=== PATIENT | male | born 1970 | race Caucasian/White ===

== ENCOUNTER 2017-10-28 12:12 | Inpatient (IN) | payer OTHER ==
[2017-10-28] VITALS (15 sets, daily range): BP systolic 98–142; BP diastolic 56–85; PULSE 96–110; RESP 11–12; TEMP 97.3–100; O2SAT 97–100
--- NOTE | 2017-10-28 14:47 | RADRPT ---
EXAM DATE/TIME: 10/28/2017 14:22 [facility] COMPARISON: No previous studies available for comparison. INDICATIONS : Organ donor. MEDICAL HISTORY : unobtainable SURGICAL HISTORY : unobtainable ENCOUNTER: Subsequent ACUITY: 1 day PAIN SCORE: Non-responsive. LOCATION: Bilateral chest FINDINGS: There is diffuse patchy infiltrates and consolidation in the medial right lower lung. The left lung i s grossly clear except for some mild atelectasis in the left lung base. The heart size is within norm al limits. There is no pneumothorax. Support devices are in place. The bony structures are grossly in tact. CONCLUSION: Patchy parenchymal consolidation in the right lower lung. Vadim Simms MD on October 28, 2017 at 14:44 Board Certified Radiologist. This report was verified electronically.
[2017-10-28] MEDS ORDERED: INSULIN HUMAN REGULAR 1,000 UNITS/10 ML VIAL IV PUSH SCH (16:00)
[2017-10-28] MEDS: CLINDAMYCIN 900 MG/NS PREMIX 50 ML IV SCH ×2 (16:00→21:57)
[2017-10-28] MEDS ORDERED: methylPREDNISolone SO SUCC INJ 2,000 MG in DEXTROSE 5% IN WATER INJ 250 ML IV ONE ×2 (16:00)
[2017-10-28] MEDS: 0.0225% SODIUM CHLORIDE, POTASSIUM CHLORIDE 20 MEQ IV SCH ×3 (16:00)
[2017-10-28] MEDS ORDERED: CLINDAMYCIN 900 MG in NS 100 ML IV SCH (16:00)
[2017-10-28] MEDS ORDERED: LEVOTHYROXINE SODIUM 100 MCG VIAL IV PUSH ONE (16:00)
[2017-10-28] MEDS ORDERED: DEXTROSE 50% IN WATER 50 ML VIAL(D50) IV PUSH SCH (16:00)
[2017-10-28] MEDS: CEFEPIME 1000 MG/NS 100 ML IV SCH ×4 (16:00→21:23)
[2017-10-28] MEDS ORDERED: VASOPRESSIN 80 U/NS 100 ML Titrate per Translife Protocol IV PRN ×2 (16:00)
[2017-10-28] MEDS ORDERED: DOPamine INJ 400 MG in SODIUM CHLOR 0.9% 250 ML INJ 240 ML IV PRN (16:15)
[2017-10-28] MEDS ORDERED: DOPamine INJ 400 MG in SODIUM CHLOR 0.9% 250 ML INJ 250 ML IV SCH (16:15)
[2017-10-28] MEDS ORDERED: LEVOTHYROXINE 400 MCG/NS 500 ML IV SCH ×4 (16:15→17:00)
[2017-10-28] MEDS: RESP: ACETYLCYSTEINE 20% 30 ML NEB NEB SCH ×3 (16:16→23:09)
[2017-10-28] MEDS: RESP: ALBUTEROL 2.5 MG/3 ML NEB (SCH) NEB ×3 (16:16→23:09)
[2017-10-28 17:04] LABS: BACTERIA, URINE OCC /hpf; BILIRUBIN, URINE NEG (NEG); BLOOD, URINE MOD (NEG); GLUCOSE,URINE NEG (NEG); HYALINE CAST, URINE 3 /lpf (RARE); KETONE, URINE NEG (NEG); NITRITE,URINE NEG (NEG); URINE COLOR YELLOW (YELLW/STRAW); URINE LEUKOCYTE ESTERASE LARGE (NEG); WHITE BLOOD CELL CLUMPS MANY
[2017-10-28 17:05] LABS: BASOPHIL % 0.2 % (0.0-2.0); EOSINOPHIL # 0.1 TH/MM3 (0-0.4); EOSINOPHIL % 1.7 % (0.0-4.0); HEMATOCRIT 33.9 % (39.0-51.0); LYMPHOCYTE # 0.5 TH/MM3 (1.0-4.8); MEAN CELL VOLUME 92.1 FL (80.0-100.0); MEAN CORPUSCULAR HEMOGLOBIN 29.9 PG (27.0-34.0); MEAN CORPUSCULAR HGB CONC 32.5 % (32.0-36.0); MEAN PLATELET VOLUME 9.6 FL (7.0-11.0); MONO % 11.4 % (0.0-8.0); MONOCYTE # 0.9 TH/MM3 (0-0.9); NEUT % 79.7 % (16.0-70.0); PLATELET COUNT 124 TH/MM3 (150-450); RED BLOOD COUNT 3.68 MIL/MM3 (4.50-5.90); RED CELL DISTRIBUTION WIDTH 14.7 % (11.6-17.2); WHITE BLOOD COUNT 7.6 TH/MM3 (4.0-11.0)
[2017-10-28 17:13] LABS: ALBUMIN 2.3 GM/DL (3.4-5.0); AST (GOT) 16 U/L (15-37); BLOOD UREA NITROGEN 16 MG/DL (7-18); CHLORIDE 111 MEQ/L (98-107); CREATININE 1.82 MG/DL (0.60-1.30); DIRECT BILIRUBIN ADULT 0.2 MG/DL (0.0-0.2); GAMMA GT 29 U/L (15-85); GLOMERULAR FILTRATION RATE 40 ML/MIN (>89); GLUCOSE,RANDOM 86 MG/DL (74-106); MAGNESIUM 1.3 MG/DL (1.5-2.5); PHOSPHORUS 3.6 MG/DL (2.5-4.9); SODIUM (NA) 140 MEQ/L (136-145)
[2017-10-28] MEDS ORDERED: SODIUM BICARBONATE 8.4% SOLN 50 MEQ/50 ML VIAL ONE (17:15)
[2017-10-28 17:18] LABS: ALKALINE PHOSPHATASE 49 U/L (45-117); ALT (GPT) 12 U/L (12-78); INDIRECT BILIRUBIN 0.6 MG/DL (0.0-0.8); TOTAL BILIRUBIN ADULT 0.8 MG/DL (0.2-1.0); TOTAL PROTEIN 5.6 GM/DL (6.4-8.2); TROPONIN I 0.25 NG/ML (0.02-0.05)
[2017-10-28 17:20] LABS: CALCIUM-PROTEIN CORRECTED 7.8 MG/DL (8.5-10.1)
[2017-10-28] MEDS: MILRINONE INJ 20 MG in SODIUM CHLORIDE 0.9% INJ 80 ML IV SCH (17:30)
--- NOTE | 2017-10-28 18:31 | ECHRPT ---
Indication: organ donor CONCLUSIONS The left ventricular systolic function is severely reduced with an estimated ejection fraction in th e range of 30-35%. Normal left ventricular size. Wall thickness is normal. There is global left ventricular dysfunction. The right ventricle is mildly dilated. Trace mitral valve regurgitation. Aortic valve sclerosis is present. Trace aortic valve regurgitation. Mild thickening of the tricuspid valve leaflets. There is mild tricuspid valve regurgitation. The estimated pulmonary arterial pressure is 38.9 mmHg. BP: / HR: Rhythm: Sinus MEASUREMENTS (Male / Female) Normal Values Technical Quality:Good 2D ECHO LV Diastolic Diameter PLAX 5.7 cm 4.2 - 5.9 / 3.9 - 5.3 cm LV Systolic Diameter PLAX 4.9 cm IVS Diastolic Thickness 1.0 cm 0.6 - 1.0 / 0.6 - 0.9 cm LVPW Diastolic Thickness 1.0 cm 0.6 - 1.0 / 0.6 - 0.9 cm LV Relative Wall Thickness 0.3 RV Internal Dim ED PLAX 2.5 cm LVOT Diameter 2.2 cm LA Systolic Diameter LX 3.4 cm 3.0 - 4.0 / 2.7 - 3.8 cm LV Ejection Fraction MOD 4C 31.3 % LV Ejection Fraction 4C AL 34.4 % M-MODE Aortic Root Diameter MM 3.2 cm LA Systolic Diameter MM 3.4 cm LA Ao Ratio MM 1.1 AV Cusp Separation MM 2.0 cm DOPPLER AV Peak Velocity 88.2 cm/s AV Peak Gradient 3.1 mmHg AI Peak Velocity 239.0 cm/s AI Peak Gradient 22.8 mmHg AI Pressure Half Time 1008.0 ms LVOT Peak Velocity 69.1 cm/s LVOT Peak Gradient 1.9 mmHg AV Area Cont Eq pk 3.0 cm LV E' Lateral Velocity 4.9 cm/s LV E' Septal Velocity 4.5 cm/s TR Peak Velocity 269.0 cm/s TR Peak Gradient 28.9 mmHg Right Atrial Pressure 10.0 mmHg Pulmonary Artery Systolic Pressu 38.9 mmHg Right Ventricular Systolic Press 38.9 mmHg FINDINGS LEFT VENTRICLE The left ventricular systolic function is severely reduced with an estimated ejection fraction in th e range of 30-35%. Normal left ventricular size. Wall thickness is normal. There is global left ventricular dysfunction. RIGHT VENTRICLE The right ventricle is mildly dilated. LEFT ATRIUM The left atrial size is normal. RIGHT ATRIUM The right atrial size is normal. ATRIAL SEPTUM Normal atrial septal thickness without atrial level shunting by limited color doppler interrogation. AORTA The aortic root and proximal ascending aorta are normal in size on limited imaging. MITRAL VALVE Trace mitral valve regurgitation. AORTIC VALVE Trileaflet aortic valve. Aortic valve sclerosis is present. Trace aortic valve regurgitation. TRICUSPID VALVE Mild thickening of the tricuspid valve leaflets. There is mild tricuspid valve regurgitation. The estimated pulmonary arterial pressure is 38.9 mmHg. PULMONARY VALVE No pulmonary valve regurgitation or stenosis. VESSELS The inferior vena cava is normal in size. PERICARDIUM No pericardial effusion. Bill Carter MD, FACC (Electronically Signed) Final Date:28 October 2017 18:30
[2017-10-28] MEDS ORDERED: ICU - POTASSIUM CHLORIDE/AQUEOUS SOLN 40 MEQ/100 ML IVPB IV PRN (18:45)
[2017-10-28] MEDS ORDERED: ICU - SODIUM PHOSPHATE 30 MMOL/NS 250 ML IV PRN ×2 (18:45)
[2017-10-28] MEDS ORDERED: ICU - MAGNESIUM OXIDE 400 MG TAB PO PRN (18:45)
[2017-10-28] MEDS ORDERED: POTASSIUM CHLORIDE 25 MEQ EFFERVESCENT TAB PO PRN (18:45)
[2017-10-28] MEDS ORDERED: ICU - D/C ICU ELECTROLYTE ORDERS PRN (18:45)
[2017-10-28] MEDS ORDERED: ICU - POTASSIUM PHOSPHATE 30 MMOL/NS 250 ML IV PRN ×2 (18:45)
[2017-10-28] MEDS ORDERED: ICU - MAGNESIUM SULFATE 2 GM/NS 100 ML IV PRN ×2 (18:45)
[2017-10-28] MEDS ORDERED: ICU - CALL ORDERING PHYSICIAN PRN (18:45)
[2017-10-28] MEDS ORDERED: ICU - MAGNESIUM SULFATE 4 GM/NS 100 ML IV PRN ×2 (18:45)
[2017-10-28] MEDS ORDERED: ICU - POTASSIUM PHOSPHATE MONOBASIC 500 MG TAB PO PRN (18:45)
[2017-10-28 19:57] LABS: INTERNATIONAL NORMALIZED RATIO 1.1 RATIO; PROTHROMBIN TIME - PATIENT 11.6 SEC (9.8-11.6)
[2017-10-28] MEDS: methylPREDNISolone SO SUCC INJ 1,000 MG in SODIUM CHLORIDE 0.9% INJ 100 ML IV SCH (23:12)
[2017-10-28] MEDS ORDERED: SODIUM BICARBONATE 8.4% INJ 50 MEQ/50 ML SYR IV ONE (23:45)
--- NOTE | 2017-10-28 23:48 | EKG ---
Date Performed: 10/28/2017 Time Performed: 17:17:58 PTAGE: 47 years EKG: Sinus tachycardia. Short TX interval Extensive T wave changes may be due to myocardial isch emia Abnormal ECG NO PREVIOUS TRACING DOCTOR: Finn Comer Interpretating Date/Time 10/28/2017 23:47:31
[2017-10-29] VITALS (33 sets, daily range): BP systolic 108–159; BP diastolic 64–86; PULSE 86–106; RESP 11–22; TEMP 97.1–99.5; O2SAT 100
[2017-10-29] MEDS: MILRINONE INJ 20 MG in SODIUM CHLORIDE 0.9% INJ 80 ML IV SCH ×2 (01:32→17:22)
[2017-10-29] MEDS: RESP: ACETYLCYSTEINE 20% 30 ML NEB NEB SCH ×6 (03:18→23:28)
[2017-10-29] MEDS: RESP: ALBUTEROL 2.5 MG/3 ML NEB (SCH) NEB ×6 (03:18→23:28)
[2017-10-29] MEDS: CEFEPIME 1000 MG/NS 100 ML IV SCH ×8 (03:41→21:10)
--- NOTE | 2017-10-29 03:59 | RADRPT ---
EXAM DATE/TIME: 10/29/2017 02:17 [facility] COMPARISON: CHEST SINGLE AP, October 28, 2017, 14:22. INDICATIONS : Respiratory failure. MEDICAL HISTORY : unobtainable SURGICAL HISTORY : unobtainable ENCOUNTER: Subsequent ACUITY: 2 days PAIN SCORE: Non-responsive. LOCATION: Bilateral chest FINDINGS: Decreased parenchymal consolidation at the right lung, now minimal. Tiny bilateral pleural effusions are present. No pneumothorax. Cardiomediastinal silhouette within normal limits. Patient remains intubated. Endotracheal tube tip i s at the level of the thoracic inlet. A nasogastric tube courses into the stomach. There is a left in ternal jugular central venous catheter again noted, tip in the superior vena cava. CONCLUSION: Improved aeration of the right lung. Tiny bilateral pleural effusions. Nikita Bernabe MD on October 29, 2017 at 3:56 Board Certified Radiologist. This report was verified electronically.
[2017-10-29] MEDS: CLINDAMYCIN 900 MG/NS PREMIX 50 ML IV SCH ×4 (04:00→21:50)
[2017-10-29 04:10] LABS: AUTOMATED NEUTROPHIL # 9.8 TH/MM3 (1.8-7.7); BASOPHIL % 0.2 % (0.0-2.0); HEMATOCRIT 33.2 % (39.0-51.0); HEMOGLOBIN 11.1 GM/DL (13.0-17.0); LYMPH % 1.9 % (9.0-44.0); LYMPHOCYTE # 0.2 TH/MM3 (1.0-4.8); MEAN CELL VOLUME 90.4 FL (80.0-100.0); MEAN CORPUSCULAR HEMOGLOBIN 30.2 PG (27.0-34.0); MEAN CORPUSCULAR HGB CONC 33.4 % (32.0-36.0); MEAN PLATELET VOLUME 9.5 FL (7.0-11.0); MONO % 3.2 % (0.0-8.0); MONOCYTE # 0.3 TH/MM3 (0-0.9); NEUT % 94.7 % (16.0-70.0); PLATELET COUNT 142 TH/MM3 (150-450); RED BLOOD COUNT 3.67 MIL/MM3 (4.50-5.90); RED CELL DISTRIBUTION WIDTH 14.2 % (11.6-17.2); WHITE BLOOD COUNT 10.4 TH/MM3 (4.0-11.0)
[2017-10-29 04:16] LABS: AMORPHOUS SEDIMENT, URINE RARE; BACTERIA, URINE OCC /hpf; BILIRUBIN, URINE NEG (NEG); BLOOD, URINE MOD (NEG); GLUCOSE,URINE 300 mg/dL (NEG); HYALINE CAST, URINE 2 /lpf (RARE); KETONE, URINE NEG (NEG); MUCUS URINE FEW /lpf (OCC); NITRITE,URINE NEG (NEG); SQUAMOUS EPITHELIAL CELL URINE 2 /hpf (0-5); URINE COLOR YELLOW (YELLW/STRAW); URINE LEUKOCYTE ESTERASE LARGE (NEG); WHITE BLOOD CELL CLUMPS MOD
[2017-10-29 04:40] LABS: ALBUMIN 2.3 GM/DL (3.4-5.0); BICARBONATE 20.9 MEQ/L (21.0-32.0); CALCIUM 7.3 MG/DL (8.5-10.1); CALCIUM-PROTEIN CORRECTED 7.8 MG/DL (8.5-10.1); CREATININE 1.95 MG/DL (0.60-1.30); TOTAL BILIRUBIN ADULT 0.9 MG/DL (0.2-1.0); TOTAL PROTEIN 6.2 GM/DL (6.4-8.2)
[2017-10-29] MEDS: LABETALOL HCL 100 MG/20 ML VIAL IV PRN ×10 (05:07→21:30)
[2017-10-29] MEDS: 0.0225% SODIUM CHLORIDE, POTASSIUM CHLORIDE 20 MEQ IV SCH ×6 (05:36→22:27)
[2017-10-29] MEDS ORDERED: SODIUM BICARBONATE 8.4% SOLN 50 MEQ/50 ML VIAL IV ONE (05:45)
[2017-10-29] MEDS: INSULIN HUMAN REGULAR 1,000 UNITS/10 ML VIAL IV PUSH PRN ×3 (08:17→16:06)
[2017-10-29] MEDS ORDERED: LIDOCAINE HCL 1% 20 ML VIAL ONE (08:19)
[2017-10-29] MEDS: methylPREDNISolone SO SUCC INJ 1,000 MG in SODIUM CHLORIDE 0.9% INJ 100 ML IV SCH ×3 (08:40→23:42)
--- NOTE | 2017-10-29 09:38 | RADRPT ---
EXAM DATE/TIME: 10/29/2017 09:06 [facility] COMPARISON: No previous studies available for comparison. INDICATIONS : Right lung lesion. RADIATION DOSE: 26.05 CTDIvol (mGy) MEDICAL HISTORY : Non-responsive. SURGICAL HISTORY : Non-responsive. ENCOUNTER: Initial ACUITY: 1 day PAIN SCALE: Non-responsive LOCATION: chest TECHNIQUE: Volumetric scanning of the chest was performed. Using automated exposure control and adjustment of t he mA and/or kV according to patient size, radiation dose was kept as low as reasonably achievable to obtain optimal diagnostic quality images. DICOM format image data is available electronically for r eview and comparison. Follow-up recommendations for detected pulmonary nodules are based at a minimum on nodule size and pa tient risk factors according to Fleischner Society Guidelines. FINDINGS: LUNGS: The consolidation previously seen in the right base is no longer present characteristic of atelectasi s. There is some developing atelectatic changes in the left base. Perihilar stranding may represent a n inflammatory or infectious process. PLEURAE: There is no pleural thickening or pleural effusion. MEDIASTINUM: The heart and great vessels demonstrate no acute abnormality. There is no mediastinal or hilar lymph adenopathy. AXILLAE: Within normal limits. No lymphadenopathy. MUSCULOSKELETAL: Within normal limits for patient age. MISCELLANEOUS: The visualized upper abdominal organs demonstrate no acute abnormality. CONCLUSION: 1. Previously seen area of dense consolidation medially in the right base is no longer present. No bi opsy performed. 2. Minimal atelectatic changes developing in the left base. 3. Bihilar reticulonodular pattern, especially on the right probably represents an inflammatory or in fectious process. Sina Lynch MD on October 29, 2017 at 9:33 Board Certified Radiologist. This report was verified electronically.
[2017-10-29] MEDS ORDERED: ALBUMIN 25% INJ 100 ML IV ONE ×2 (09:55→10:15)
[2017-10-29] MEDS ORDERED: FUROSEMIDE 40 MG/4 ML VIAL ONE (09:55)
[2017-10-29] MEDS ORDERED: FUROSEMIDE 20 MG/2 ML VIAL IV PUSH ONE ×2 (10:00→12:15)
--- NOTE | 2017-10-29 10:27 | ECHRPT ---
Indication: CONCLUSIONS The left ventricular systolic function is severely reduced with an estimated ejection fraction in th e range of 30-35%. There is global left ventricular dysfunction. Trace mitral valve regurgitation. Trace aortic valve regurgitation. There is mild tricuspid valve regurgitation. BP: / HR: Rhythm: MEASUREMENTS (Male / Female) Normal Values Technical Quality: 2D ECHO LV Diastolic Diameter PLAX 5.1 cm 4.2 - 5.9 / 3.9 - 5.3 cm LV Systolic Diameter PLAX 4.6 cm IVS Diastolic Thickness 1.0 cm 0.6 - 1.0 / 0.6 - 0.9 cm LVPW Diastolic Thickness 1.0 cm 0.6 - 1.0 / 0.6 - 0.9 cm LV Relative Wall Thickness 0.4 M-MODE Aortic Root Diameter MM 3.1 cm AV Cusp Separation MM 2.1 cm DOPPLER Mitral E Point Velocity 71.1 cm/s Mitral A Point Velocity 42.0 cm/s Mitral E to A Ratio 1.7 LV E' Lateral Velocity 6.8 cm/s Mitral E to LV E' Lateral Ratio 10.4 LV E' Septal Velocity 5.3 cm/s Mitral E to LV E' Septal Ratio 13.5 TR Peak Velocity 246.0 cm/s TR Peak Gradient 24.2 mmHg FINDINGS LEFT VENTRICLE Normal left ventricular size. Wall thickness is normal. The left ventricular systolic function is severely reduced with an estimated ejection fraction in th e range of 30-35%. There is global left ventricular dysfunction. RIGHT VENTRICLE The right ventricle is mildly dilated. LEFT ATRIUM The left atrial size is normal. RIGHT ATRIUM The right atrial size is normal. ATRIAL SEPTUM Normal atrial septal thickness. MITRAL VALVE Structurally normal mitral valve. Trace mitral valve regurgitation. No mitral valve stenosis. AORTIC VALVE Probable trileaflet No aortic valve stenosis. Trace aortic valve regurgitation. TRICUSPID VALVE Structurally normal tricuspid valve. There is mild tricuspid valve regurgitation. No tricuspid valve stenosis. PULMONARY VALVE The pulmonary valve is not well visualized. No pulmonary valve regurgitation. PERICARDIUM No pericardial effusion. Finn Comer DO (Electronically Signed) Final Date:29 October 2017 10:26
--- NOTE | 2017-10-29 10:37 | RADRPT ---
EXAM DATE/TIME: 10/29/2017 10:06 [facility] COMPARISON: CHEST SINGLE AP, October 29, 2017, 2:17. INDICATIONS : Organ donor. MEDICAL HISTORY : Non-responsive. SURGICAL HISTORY : Non-responsive. ENCOUNTER: Subsequent ACUITY: 3 days PAIN SCORE: Non-responsive. LOCATION: Bilateral chest FINDINGS: 2 portable frontal views of the chest show an endotracheal tube with the tip 6 cm proximal to the car elvi. Left internal jugular vein central venous line with the tip at the confluence of the innominate brachiocephalic veins. Nasogastric tube with the tip just past the GE junction. Proximal sidehole is within the lower thoracic esophagus. Lungs are fully expanded. No discrete infiltrate or effusion. He art is normal in size. No pneumothoraces. Bony structures are unremarkable. CONCLUSION: 1. Lines and tubes as detailed above without pneumothorax. 2. Clear lungs. John Mckoy Jr., MD on October 29, 2017 at 10:33 Board Certified Radiologist. This report was verified electronically.
[2017-10-29] MEDS ORDERED: SODIUM BICARBONATE 8.4% INJ 50 MEQ/50 ML SYR ONE (10:45)
[2017-10-29 12:05] LABS: AUTOMATED NEUTROPHIL # 7.9 TH/MM3 (1.8-7.7); BASOPHIL % 0.1 % (0.0-2.0); HEMATOCRIT 29.1 % (39.0-51.0); HEMOGLOBIN 9.8 GM/DL (13.0-17.0); LYMPH % 2.1 % (9.0-44.0); LYMPHOCYTE # 0.2 TH/MM3 (1.0-4.8); MEAN CELL VOLUME 89.6 FL (80.0-100.0); MEAN CORPUSCULAR HGB CONC 33.5 % (32.0-36.0); MEAN PLATELET VOLUME 9.9 FL (7.0-11.0); MONOCYTE # 0.5 TH/MM3 (0-0.9); NEUT % 91.8 % (16.0-70.0); PLATELET COUNT 142 TH/MM3 (150-450); RED BLOOD COUNT 3.25 MIL/MM3 (4.50-5.90); RED CELL DISTRIBUTION WIDTH 14.1 % (11.6-17.2); WHITE BLOOD COUNT 8.6 TH/MM3 (4.0-11.0)
[2017-10-29 12:07] LABS: INTERNATIONAL NORMALIZED RATIO 1.3 RATIO; PROTHROMBIN TIME - PATIENT 13.4 SEC (9.8-11.6)
[2017-10-29 12:20] LABS: BACTERIA, URINE OCC /hpf; BILIRUBIN, URINE NEG (NEG); BLOOD, URINE MOD (NEG); GLUCOSE,URINE NEG (NEG); KETONE, URINE NEG (NEG); MUCUS URINE FEW /lpf (OCC); NITRITE,URINE NEG (NEG); PH, URINE 5.5 (5.0-8.5); SQUAMOUS EPITHELIAL CELL URINE <1 /hpf (0-5); URINE COLOR YELLOW (YELLW/STRAW); URINE LEUKOCYTE ESTERASE MOD (NEG); WHITE BLOOD CELL CLUMPS FEW
[2017-10-29 12:25] LABS: ALBUMIN 2.5 GM/DL (3.4-5.0); AST (GOT) 19 U/L (15-37); BICARBONATE 20.8 MEQ/L (21.0-32.0); BLOOD UREA NITROGEN 27 MG/DL (7-18); CALCIUM 7.6 MG/DL (8.5-10.1); CHLORIDE 107 MEQ/L (98-107); CREATININE 2.23 MG/DL (0.60-1.30); GLOMERULAR FILTRATION RATE 32 ML/MIN (>89); GLUCOSE,RANDOM 186 MG/DL (74-106); MAGNESIUM 2.1 MG/DL (1.5-2.5); SODIUM (NA) 141 MEQ/L (136-145)
[2017-10-29 12:26] LABS: ALT (GPT) 15 U/L (12-78); PHOSPHORUS 4.2 MG/DL (2.5-4.9)
[2017-10-29 12:29] LABS: ALKALINE PHOSPHATASE 50 U/L (45-117); TOTAL BILIRUBIN ADULT 0.6 MG/DL (0.2-1.0); TOTAL PROTEIN 6.2 GM/DL (6.4-8.2)
--- NOTE | 2017-10-29 14:57 | RADRPT ---
EXAM DATE/TIME: 10/29/2017 14:12 [facility] COMPARISON: CHEST SINGLE AP, October 29, 2017, 10:06. INDICATIONS : Organ donor MEDICAL HISTORY : non-responsive SURGICAL HISTORY : non responsive ENCOUNTER: Initial ACUITY: 2 days PAIN SCORE: Non-responsive. LOCATION: Bilateral chest FINDINGS: A single view of the chest demonstrates minimal atelectatic changes in the medial right base. Lungs a re otherwise clear. No effusions. Heart size is normal. Endotracheal tube remains stable in position with tip at the clavicular heads. Nasogastric tube is identified with the side port at the [employer]. Heart size is normal. Osseous structures are intact. CONCLUSION: 1. Minimal right basilar atelectatic changes. Lungs are otherwise clear. 2. Life support tubes are stable in position with the side port of the nasogastric tube at the [employer] ction. Sina Lynch MD on October 29, 2017 at 14:52 Board Certified Radiologist. This report was verified electronically.
--- NOTE | 2017-10-29 20:12 | RADRPT ---
EXAM DATE/TIME: 10/29/2017 19:02 [facility] COMPARISON: CHEST SINGLE AP, October 29, 2017, 14:12. INDICATIONS : Organ donor MEDICAL HISTORY : Non responsive SURGICAL HISTORY : Non responsive ENCOUNTER: Subsequent ACUITY: 1 day PAIN SCORE: Non-responsive. LOCATION: Bilateral chest FINDINGS: ET tube tip over the yissel. Gastric tube side-port is at the level of the hemidiaphragm. The lungs are symmetrically aerated. The heart is normal size. Both hemidiaphragms are well delineated. CONCLUSION: The lungs are clear. John Clay MD on October 29, 2017 at 20:09 Board Certified Radiologist. This report was verified electronically.
[2017-10-29 20:28] LABS: AUTOMATED NEUTROPHIL # 7.6 TH/MM3 (1.8-7.7); HEMATOCRIT 27.1 % (39.0-51.0); LYMPH % 1.5 % (9.0-44.0); LYMPHOCYTE # 0.1 TH/MM3 (1.0-4.8); MEAN CELL VOLUME 89.2 FL (80.0-100.0); MEAN CORPUSCULAR HEMOGLOBIN 29.7 PG (27.0-34.0); MEAN CORPUSCULAR HGB CONC 33.3 % (32.0-36.0); MEAN PLATELET VOLUME 9.6 FL (7.0-11.0); MONO % 5.2 % (0.0-8.0); MONOCYTE # 0.4 TH/MM3 (0-0.9); NEUT % 93.3 % (16.0-70.0); PLATELET COUNT 143 TH/MM3 (150-450); RED BLOOD COUNT 3.03 MIL/MM3 (4.50-5.90); RED CELL DISTRIBUTION WIDTH 14.1 % (11.6-17.2); WHITE BLOOD COUNT 8.2 TH/MM3 (4.0-11.0)
[2017-10-29 20:34] LABS: BILIRUBIN, URINE NEG (NEG); BLOOD, URINE SMALL (NEG); GLUCOSE,URINE NEG (NEG); HYALINE CAST, URINE 1 /lpf (RARE); KETONE, URINE NEG (NEG); NITRITE,URINE NEG (NEG); PH, URINE 5.5 (5.0-8.5); URINE COLOR LIGHT-YELLOW (YELLW/STRAW); URINE LEUKOCYTE ESTERASE NEG (NEG)
[2017-10-29 20:35] LABS: INTERNATIONAL NORMALIZED RATIO 1.3 RATIO; PROTHROMBIN TIME - PATIENT 13.2 SEC (9.8-11.6)
[2017-10-29 20:51] LABS: ALBUMIN 2.4 GM/DL (3.4-5.0); AST (GOT) 17 U/L (15-37); BLOOD UREA NITROGEN 36 MG/DL (7-18); CALCIUM 7.6 MG/DL (8.5-10.1); CHLORIDE 110 MEQ/L (98-107); GLOMERULAR FILTRATION RATE 29 ML/MIN (>89); GLUCOSE,RANDOM 163 MG/DL (74-106); MAGNESIUM 2.2 MG/DL (1.5-2.5); SODIUM (NA) 146 MEQ/L (136-145)
[2017-10-29 20:52] LABS: ALT (GPT) 13 U/L (12-78)
[2017-10-29 20:55] LABS: ALKALINE PHOSPHATASE 45 U/L (45-117); PHOSPHORUS 3.6 MG/DL (2.5-4.9); TOTAL BILIRUBIN ADULT 0.7 MG/DL (0.2-1.0); TOTAL PROTEIN 6.1 GM/DL (6.4-8.2)
[2017-10-29] MEDS: ICU - POTASSIUM CHLORIDE/AQUEOUS SOLN 20 MEQ/100 ML IVPB IV PRN ×2 (21:10→23:01)
[2017-10-30] VITALS: BP 143/86; PULSE 92; RESP 18; TEMP 97.7; O2SAT 100
[2017-10-30] MEDS ORDERED: INSULIN HUMAN REGULAR 1,000 UNITS/10 ML VIAL IV PUSH PRN (00:45)
[2017-10-30 01:00] VITALS: BP 139/76; PULSE 86; RESP 18; TEMP 97.5; O2SAT 100
[2017-10-30] MEDS ORDERED: VASOPRESSIN 20 UNITS/ML VIAL ONE (01:31)
[2017-10-30] MEDS ORDERED: VECURONIUM BROMIDE 20 MG VIAL IV ONE (02:30)
[2017-10-30] MEDS ORDERED: PHENYLEPH/NS 1000 MCG/10 ML SYR IV ONE (02:30)
== END 2017-10-30 05:23 | disposition expired | DRG 951 ==
LOC: N03A 12:12
DX: Z52.89 Donor of other specified organs or tissues (principal)
CPT/HCPCS: 71045; 71250; 76937; 80048; 80053; 80076; 81001; 82150; 82330; 82550; 82552; 82805; 82948; 82977; 83036; 83690; 83735; 84100; 84153; 84155; 84484; 85025; 85384; 85610; 85730; 86403; 86850; 86900; 86901; 86920; 87070; 87086; 87205; 87633; 87804; 88307; 88331; 93005; 93306; 94003; 94640; 94664; 94667; 94668; 94770; J0692; J1265; J1815; J1940; J2260; J2370; J2930; J3475; J3480; J7040; J7050; J7060; J7608; J7613; P9047